=== PATIENT | male | born 1955 | race Caucasian/White ===

== ENCOUNTER → 2020-02-26 | Outpatient (CLI) | payer OTHER ==
[~2020-02-26] MED LIST: ACAI BERRY500 MG; ATACAND; BILBERRY100 MG; CO Q-10100 MG; GLUCOPHAGE500 MG; GLUCOSAMINE SU500 MG; HCTZ; MULTIVITAMINS; POTASSIUM CITRATE
== END ==
LOC: LAB 12:54
PROVIDERS: ATTEND Anesthesiology
DX: Z01.812 Encounter for preprocedural laboratory examination (principal); Z11.59 Encounter for screening for other viral diseases

== ENCOUNTER → 2020-10-12 | Outpatient (CLI) | payer OTHER | LOC: LAB 09:17 | PROVIDERS: ATTEND Anesthesiology | DX: Z01.812 Encounter for preprocedural laboratory examination (principal); Z20.822 Contact with and (suspected) exposure to COVID-19 ==